=== PATIENT | female | born 1950 | race Caucasian/White ===

== ENCOUNTER 2016-04-24 08:44 | Outpatient (CLI) | payer OTHER ==
[2016-04-24 09:36] LABS: eGFR (African) > 60; eGFR (Non-African) > 60
== END 2016-04-24 08:45 ==
LOC: LAB 08:44
PROVIDERS: ATTEND Family Medicine
DX: E78.00 Pure hypercholesterolemia, unspecified (principal)
CPT/HCPCS: 36415; 80053; 80061

== ENCOUNTER 2016-06-09 08:47 | Day surgery (SDC) | payer OTHER ==
[~2016-06-09 08:47] MED LIST: LACTATED RINGERS 1,000 ML IV.SOLN IV ONE; LIDOCAINE HCL/PF 2% 100 MG/5 ML VIAL IJ ONE; PROPOFOL 500 MG/50 ML VIAL IV ONE; SALINE FLUSH 10 ML DISP.SYRIN IVF ONE
--- NOTE | 2016-06-09 16:01 | GI Report ---
REFERRING PHYSICIAN: Dr. Efrain Lan DRUM STENCILER: Jose Carlos Pretty MD PROCEDURE MEDICATION: Propofol as per anesthesia. INDICATIONS: This is a 65-year-old woman who has had a Schatzki's ring dilated in the past who has had recurrence of difficulty swallowing and occasional heartburn. PROCEDURE PERFORMED: Endoscopy followed by a colonoscopy. PROCEDURE: An Olympus video endoscope was passed through the esophagus under direct visualization. The patient does have a stricture at the GE junction. Cardia of the stomach, no mass. Fundus, body, and antrum of the stomach were normal. Duodenal bulb, first and second part of the duodenum were examined and were normal. A guidewire was placed in the stomach. The endoscope was removed and up to a 51 Savary-Selena dilator was passed over the guidewire without difficulty. Endoscope was re-introduced. There was some bleeding where the stricture was stretched but not active. We did take biopsies there for pathology. Patient tolerated the procedure well. FINDINGS: 1. Esophageal stricture dilated to a 51-American. Biopsies taken at the stricture. 2. Esophagitis at the GE junction. RECOMMENDATIONS: 1. Be on a full liquid diet today. 2. Would take a PPI, like omeprazole, before breakfast daily. 3. Elevate the head of the bed at least 3 inches. 4. Do not eat late at night. 5. Follow up biopsy results. cc: Dr. Efrain PARKER
--- NOTE | 2016-06-10 10:48 | GI Report ---
REFERRING PHYSICIAN: Dr. Efrain Lan MEDICAL PRACTITIONERS: Jose Carlos Pretty MD PROCEDURE MEDICATION: Propofol as per anesthesia. INDICATIONS: Her last colonoscopy was 10 years ago. She denies changes in her stool or blood in the stool. PROCEDURE PERFORMED: Colonoscopy screening. PROCEDURE: An Olympus video colonoscope was advanced to the rectum and slowly advanced to the cecum. The appendiceal orifice looked normal. Ileocecal valve seemed normal, though by angulation, we did not get in the terminal ileum. On slow withdrawal, cecum, ascending colon, and transverse colon with no obvious intraluminal lesions noted. In the descending colon at about 60 cm, there was a little flat-appearing polyp that was cold biopsy removed in 2 pieces and submitted to pathology. The remaining part of the descending colon and sigmoid were normal. Retroflexion of the rectum was normal. The patient tolerated the procedure well. FINDINGS: A flat-appearing polyp, biopsied, and removed in the descending colon, otherwise , normal colonoscopy. RECOMMENDATIONS: 1. Increase fiber in the diet. 2. Consider re-looking at colon in 5 to 10 years pending what the pathology returns. cc: Dr. Efrain PARKER
== END 2016-06-09 08:50 ==
LOC: OPSURG 08:47
PROVIDERS: ATTEND Internal Medicine Gastroenterology
DX: Z12.11 Encounter for screening for malignant neoplasm of colon (principal); D12.4 Benign neoplasm of descending colon; K22.2 Esophageal obstruction; K20.9 Esophagitis, unspecified
CPT/HCPCS: 43248; 45385; J2001; J2704; J7120; S1016

== ENCOUNTER 2016-06-20 04:07 | Emergency (ER) | payer OTHER ==
[2016-06-20 04:21] VITALS: BP 139/74
--- NOTE | 2016-06-20 04:43 | ED Physician Documentation ---
General Adult - HISTORIAN Historian: patient - HPI Stated Complaint: Bilateral earaches/congestion Chief Complaint: General Adult Additional Information: Occasional cough and sinus, nasal congestion for a week. Ear pain L>R since yesterday. Hears noises in left ear if she bends forward. Sweats at night. No fever. - ROS CONST: sweating CVS/RESP: cough - PAST HX Past History: none. denies: hypertension Other History: other (HLD? on simvastatin) Surgeries/Procedures: none Allergies/Adverse Reactions: Allergies Allergy/AdvReac Type Severity Reaction Status Date / Time No Known Allergies Allergy Verified 06/20/16 04:21 - SOCIAL HX Smoking History: non-smoker - FAMILY HX Family History: No - VITAL SIGNS Vital Signs: Vital Signs Temp Pulse Resp BP Pulse Ox 98.4 F 85 16 139/74 97 06/20/16 04:08 06/20/16 04:08 06/20/16 04:08 06/20/16 04:08 06/20/16 04:08 - REVIEWED ASSESSMENTS Nursing Assessment Reviewed: Yes Vitals Reviewed: Yes General Adult Physical Exam - PHYSICAL EXAM GENERAL APPEARANCE: no distress EENT: eye inspection normal, ENT inspection normal, pharynx normal, TM's nml, other (no pain with palpation facial sinus areas) NECK: normal inspection RESPIRATORY: no resp distress, breath sounds normal CVS: reg rate & rhythm, heart sounds normal, no murmur RECTAL: deferred BACK: normal inspection SKIN: warm/dry, normal color EXTREMITIES: normal range of motion (gait), no evidence of injury NEURO: CN's nml as tested, motor nml, sensation nml, cognition normal Discharge Clincal Impression: Cold Additional Instructions: You can buy Sudafed products over the counter and you can also buy them in combination with Claritin or Zyrtec. You want to try 60 mg every 12 hours. After 2-3 days, if needed, you can increase the dose to 30 mg every 6 hours. Don 't use the Sudafed for more than 7-10 days. Drink plenty of water. Follow u with your provider as needed. Condition: Good Disposition: 01 HOME, SELF-CARE Decision to Admit: NO Decision Time: 04:43
== END 2016-06-20 04:40 | disposition home or self-care (01) ==
LOC: ED 04:07
DX: J00 Acute nasopharyngitis [common cold] (principal)
CPT/HCPCS: 99283

== ENCOUNTER 2016-07-30 14:08 | Outpatient (CLI) | payer OTHER ==
--- NOTE | 2016-07-31 14:25 | OP Clinic Progress Note ---
REASON FOR VISIT: Kizzy is a 65-year-old lady having had rhinosinusitis a month or a little bit longer. She was nicely treated with antibiotics of amoxicillin, decongestant, and an antihistamine. She has at least had moderate improvement. There is still some pressure and some hollowness in the left ear. There is some nonobstructive but at least a moderate amount of cerumen in both ears. This is cleaned under the microscope in the clinic. Both eardrums are clear. There is no perforation. There is really no real fluid behind the eardrum. The left eardrum is much more stiffened and retracted than the right ear. There is some degree of anterior overhang obscuring the anterior aspect of the eardrum. Clinically, Kizzy has some persistent Eustachian tube dysfunction on the left side with a moderately retracted eardrum causing her symptoms. In addition , the patient has some degree of imbalance when making rapid turns or standing up rapidly. It is probably associated with a retracted eardrum. PLAN: Given her options, I think another course of amoxicillin would be reasonable. When asking the patient, she has absolutely no untoward negative adverse effects from the amoxicillin. I gave her 500 mg t.i.d. for 2 weeks. If she finds some pretty marked improvement nursing home along the course, she could stop. She may return on a p.r.n. basis. Overall, she has had at least moderate improvement from the first course of antibiotics. I believe on the conservative basis giving her some more would be the appropriate level of treatment. I went over the possibility of a myringotomy and/or placing a tube at a later date if she does not find enough or satisfactory improvement going forward. cc: Dr. Efrain PARKER
== END 2016-07-30 14:10 ==
LOC: ENT 14:08
PROVIDERS: ATTEND Otolaryngology
DX: H69.90 Unspecified Eustachian tube disorder, unspecified ear (principal)
CPT/HCPCS: 99214

== ENCOUNTER 2016-09-11 07:38 | Outpatient (CLI) | payer OTHER ==
[2016-09-11 08:37] LABS: eGFR (African) > 60; eGFR (Non-African) > 60
== END 2016-09-11 08:00 ==
LOC: LAB 07:38
PROVIDERS: ATTEND Family Medicine
DX: E78.00 Pure hypercholesterolemia, unspecified (principal); R73.9 Hyperglycemia, unspecified; R53.83 Other fatigue
CPT/HCPCS: 36415; 80053; 80061; 83036; 84443

== ENCOUNTER 2016-10-01 13:24 | Outpatient (CLI) | payer OTHER ==
--- NOTE | 2016-10-02 10:18 | OP Clinic Progress Note ---
REASON FOR VISIT: This 65-year-old lady has had popping and crackling in the left ear, some pressure, and some very slight muffling of hearing. Her balance is fairly good. She has taken a 2-week course of antibiotics, amoxicillin, to see if some of her clinically poor eustachian tube dysfunction would be improved. She feels that it has made no difference. I gave options and choices to the patient with a simple myringotomy or myringotomy with placement of a ventilating tube. I have gone over risks of no guarantee of improvement, possibility of permanent perforation of the eardrum, and need for aural hygiene. The patient opted to at least try a myringotomy with a small paper patch. PROCEDURE: With topical phenol anesthesia, the posterior aspect of the eardrum was anesthetized. The patient has a fairly marked anterior overhang of the ear canal. I cannot really get to the anterior half of the eardrum. There is no fluid in the middle ear. Through the numbed portion of the posterior aspect of the eardrum, which was made in a circumferential fashion, a myringotomy was made without discomfort. A small paper patch was placed over this. The patient tolerated the procedure well. The patient was able to voluntarily state that she felt that her hearing was at least noticeably clearer and the popping and crackling when she talked had gone away. PLAN: Patient will try to keep water out of the ear and I described aural hygiene to her. She will simply return in 4 to 6 weeks or p.r.n. sooner. cc: Dr. Efrain PARKER
== END 2016-10-01 13:25 ==
LOC: ENT 13:24
PROVIDERS: ATTEND Otolaryngology
DX: H92.02 Otalgia, left ear (principal); H69.82 Other specified disorders of Eustachian tube, left ear
CPT/HCPCS: 69420; G0463

== ENCOUNTER 2016-10-29 10:51 | Outpatient (CLI) | payer OTHER ==
--- NOTE | 2016-10-29 14:52 | OP Clinic Progress Note ---
REASON FOR VISIT: Kizzy is seen with symptoms of left-sided Eustachian tube dysfunction. She has had pressure, discomfort, and popping and crackling. Her equilibrium has not particularly been off. She has also had some left ear discomfort. She has had left ear pressure and a paper patch done about 4 to 6 weeks. She had some amelioration of her symptoms. They have not all dissipated. Sometimes , she feels generally better and other times about the same. She still has a small scab on the eardrum. I placed some antibiotic ointment on that to soften it and will take it off again in about 2 to 4 weeks. She would like to try some antihistamines on an wafa-bvp-[id number] basis. She will give 1 or 2 of the usual gang of Claritin, Zyrtec, or Tia a try on a several week basis and see if she has any improvement of her symptoms. She does not have any gross evidence of infection. There is no purulence. The myringotomy has healed. Again, there is still a small scab coming off the eardrum. PLAN: I will see her in follow up in about a month. cc: Dr. Efrain PARKER
== END 2016-10-29 10:52 ==
LOC: ENT 10:51
PROVIDERS: ATTEND Otolaryngology
DX: H69.92 Unspecified Eustachian tube disorder, left ear (principal)
CPT/HCPCS: G0463

== ENCOUNTER 2016-10-30 16:21 | Outpatient (CLI) | payer OTHER | END 2016-10-30 16:22 | LOC: LABRHC 16:21 | PROVIDERS: ATTEND Family Medicine | DX: L82.1 Other seborrheic keratosis (principal) ==

== ENCOUNTER 2016-11-26 14:10 | Outpatient (CLI) | payer OTHER ==
--- NOTE | 2016-11-27 10:24 | OP Clinic Progress Note ---
REASON FOR VISIT: Kzizy is seen in follow up of a left ear myringotomy for pressure, discomfort, and a popping and crackling in the left ear. In follow up of about a month, she has had some return of her symptoms but remains with a mild to moderate amount of improvement. The eardrum is sealed. There is no perforation. There is less retraction of the eardrum. There is no scar. There is no fluid and no erythema. PLAN: Overall, there is just enough improvement that Kizzy feels it is not sufficiently bothersome to need anything else done. I am certainly in agreement with that. There is no further treatment currently indicated at the level of annoyance that she has. cc: Dr. Efrain PARKER
== END 2016-11-26 14:11 ==
LOC: ENT 14:10
PROVIDERS: ATTEND Otolaryngology
DX: H92.02 Otalgia, left ear (principal)
CPT/HCPCS: 99213

== ENCOUNTER 2017-05-12 20:49 | Emergency (ER) | payer OTHER ==
[2017-05-12 21:07] VITALS: BP 128/52
--- NOTE | 2017-05-12 21:16 | ED Physician Documentation ---
General Adult - HISTORIAN Historian: patient, spouse - HPI Stated Complaint: FEVER/COUGH/NUGENT Chief Complaint: Fever Onset: hours (7) Timing: still present Severity: moderate Further Comments: yes (fever, cough, aches, headache, fatigue exposed to flu) - ROS CONST: fever, weakness EYES/ENT: none CVS/RESP: none, shortness of breath, cough GI/: none MS/SKIN/LYMPH: none NEURO/PSYCH: headache, dizziness - PAST HX Past History: none Other History: none Surgeries/Procedures: none Immunizations: UTD Allergies/Adverse Reactions: Allergies Allergy/AdvReac Type Severity Reaction Status Date / Time No Known Allergies Allergy Verified 06/20/16 04:21 - SOCIAL HX Smoking History: non-smoker Alcohol Use: none Drug Use: none - FAMILY HX Family History: No - VITAL SIGNS Vital Signs: Vital Signs Temp Pulse Resp BP Pulse Ox 103.2 F H 106 H 20 128/52 96 05/12/17 20:49 05/12/17 20:49 05/12/17 20:49 05/12/17 20:49 05/12/17 20:49 - REVIEWED ASSESSMENTS Nursing Assessment Reviewed: Yes Vitals Reviewed: Yes General Adult Physical Exam - PHYSICAL EXAM GENERAL APPEARANCE: no distress EENT: eye inspection normal, ENT inspection normal, pharynx normal, WILFREDO NECK: normal inspection RESPIRATORY: no resp distress, chest non-tender, breath sounds normal CVS: reg rate & rhythm, heart sounds normal, equal pulses, no murmur ABDOMEN: soft, normal bowel sounds BACK: normal inspection SKIN: warm/dry, normal color EXTREMITIES: non-tender, normal range of motion, no evidence of injury, no edema NEURO: oriented X3, CN's nml as tested, motor nml, sensation nml, mood/affect nml, cognition normal Discharge Clincal Impression: Influenza Referrals: Efrain Lan MD [Primary Care Provider] - 2 Days Comments: 1. Tamiflu 75 mg BID x 5 days 2. Cough syrup as prescribed 3. Zofran 4 mg as needed every 8 hours for nausea 4. Increase fluids 5. Treat fever with OTC meds 6. Monitor for symptoms of pneumonia or dehydration 7. Return to ER for any concerns Condition: Stable Disposition: 01 HOME, SELF-CARE Decision to Admit: NO Date of Decison to Admit: 05/12/17 Decision Time: 21:19
[2017-05-12] MEDS: IBUPROFEN 400 MG TABLET PO ONE (21:22)
== END 2017-05-12 21:30 | disposition home or self-care (01) ==
LOC: ED 20:49
DX: J11.89 Influenza due to unidentified influenza virus with other manifestations (principal)
CPT/HCPCS: 99282

== ENCOUNTER 2017-11-16 08:23 | Outpatient (CLI) | payer OTHER ==
[2017-11-16 11:06] LABS: eGFR (African) > 60; eGFR (Non-African) > 60
== END 2017-11-16 08:24 ==
LOC: LAB 08:23
PROVIDERS: ATTEND Family Medicine
DX: E78.00 Pure hypercholesterolemia, unspecified (principal); R73.9 Hyperglycemia, unspecified
CPT/HCPCS: 36415; 80053; 80061; 83036

== ENCOUNTER 2018-05-07 09:01 | Outpatient (CLI) | payer OTHER, MEDICARE ==
[2018-05-07 10:19] LABS: eGFR (Non-African) > 60
== END 2018-05-07 09:10 ==
LOC: LAB 09:01
PROVIDERS: ATTEND Family Medicine
DX: I10 Essential (primary) hypertension (principal); R73.9 Hyperglycemia, unspecified
CPT/HCPCS: 36415; 80053; 80061; 83036

== ENCOUNTER 2018-11-25 08:23 | Outpatient (CLI) | payer MEDICARE, OTHER ==
[2018-11-25 09:04] LABS: A1C 5.4 % (<5.7)
[2018-11-25 09:12] LABS: HDL 39 mg/dL (>40); eGFR (Non-African) > 60
== END 2018-11-25 08:25 ==
LOC: LAB 08:23
PROVIDERS: ATTEND Family Medicine
DX: I10 Essential (primary) hypertension (principal); R73.9 Hyperglycemia, unspecified
CPT/HCPCS: 36415; 80053; 80061; 83036

== ENCOUNTER 2019-02-10 09:27 | Outpatient (CLI) | payer MEDICARE, OTHER ==
--- NOTE | 2019-02-10 11:11 | Diagnostic Imaging Report ---
PATIENT MR#: [id number] PATIENT PATIENT NAME: BETI TODD DATE OF : 1950 REFERRING PHYSICIAN: Efrain Lan EXAM DATE: 02/10/2019 ACCESSION NUMBER: [id number] EXAM DESCRIPTION: DEXA DUAL ENERGY X-RAY ABSORPTIOMETRY (DXA) A DXA scan was performed on February 10, 2019 using a [employer] densitometer. IMPRESSION: Based on BMD diagnosis is consistent with osteopenia (based on WHO criteria). Fracture risk is modera te. Treatment is advised. Follow-up recommended January 2021. INDICATION: AGE RELATED OSTEOPOROSIS Technical Quality: Diagnostic RESULTS: Lumbar Spine The BMD measured in the L1-L4 region is 1.146 g/cm2: T-score -0.3 Total Hip The BMD measured at the total proximal femurs is 0.944 g/cm2: T-score -0.5 Read by: Dr. Calvin Tejeda Transcribed by: Calvin Tejeda Transcribed Date: 02/10/2019 11:10:07 AM Electronically signed by: Dr. Calvin Tejeda Date signed: 02/10/2019 11:10:07 AM
== END 2019-02-10 09:37 ==
LOC: RAD 09:27
PROVIDERS: ATTEND Family Medicine
DX: M81.0 Age-related osteoporosis without current pathological fracture (principal)
CPT/HCPCS: 77080